=== PATIENT | female | born 2005 | race Hispanic/Latino ===

== ENCOUNTER 2025-04-25 15:28 | Emergency (ER) | payer MEDICAID, SELFPAY ==
[2025-04-25 15:38] VITALS: BP 100/57; PULSE 73; RESP 16; TEMP 36.9; O2SAT 100
--- NOTE | 2025-04-25 16:11 | ED.GENADULT ---
HPI - General Adult General Chief complaint: Allergic Reaction Stated complaint: Allergic Reaction Time Seen by Provider: 04/25/25 16:11 Source: patient Mode of arrival: ambulatory Limitations: no limitations History of Present Illness HPI narrative: 19-year-old female patient presents to the [facility] with complaints of a rash and bilateral eyelid swelling that started last night. Patient states that a red blotchy rash came up all of a sudden to bilateral arms, legs and bottom of the feet. Patient states she did take 1 Benadryl at midnight and other 1 at 1:00 a.m. and states that the rash ended up going away. Patient states she still has a bit of swelling to bilateral upper eyelids. Denies any new soaps lotions or detergents but recently did get a CT. Denies any chest pain or shortness of breath denies any issues with swallowing. Related Data Home Medications ?Medication ?Instructions ?Recorded ?Confirmed ?Last Taken ?Type No Home Medications 04/25/25 04/25/25 Unknown History Allergies Allergy/AdvReac Type Severity Reaction Status Date / Time No Known Drug Allergies Allergy none Verified 04/25/25 16:04 Review of Systems Review of Systems: CONSTITUTIONAL: Denies fever, chills, or sweats. EYES: Denies visual changes, redness, or discharge. ENT: Denies rhinorrhea, congestion, sore throat, or otalgia. CARDIOVASCULAR: Denies chest pain, palpitations, or edema. RESPIRATORY: Denies cough or dyspnea. GASTROINTESTINAL: Denies abdominal pain, nausea, vomiting, or diarrhea. GENITOURINARY: Denies dysuria or hematuria. SKIN: positive rash or itching. MUSCULOSKELETAL: Denies back pain, joint pain, or myalgia. NEUROLOGIC: Denies headache, numbness, or weakness. PSYCHIATRIC: Denies anxiety or depression. PMFSH Comments At the time of my signature I agree with nursing past medical history, surgical, social, and family history. There is no relevant family history pertinent to the presenting complaint. Exam Narrative: GENERAL: Well-appearing, well-nourished, and in no acute distress. HEAD: Normocephalic, atraumatic. EYES: PERRLA and EOMI. Mild swelling to bilateral upper eye lids. ENT: Nares clear, no rhinorrhea or epistaxis. Mucous membranes moist. NECK: Supple. No lymphadenopathy CHEST: Clear to auscultation. No respiratory distress. HEART: Regular rate and rhythm. No murmur heard. Normal peripheral pulses. ABDOMEN: Soft, nontender, nondistended, normal active bowel sounds. EXTREMITIES: Normal range of motion. No edema. SKIN: Warm, dry, no obvious rash to body at this visit. NEURO: No focal deficits. Alert and oriented x3. Course Course Level of Care: Express Care Visit Vital Signs Vital signs: Vital Signs Temperature 36.9 C 04/25/25 15:38 Pulse Rate 73 04/25/25 15:38 Respiratory Rate 16 04/25/25 15:38 Blood Pressure 100/57 L 04/25/25 15:38 Pulse Oximetry 100 04/25/25 15:38 Oxygen Delivery Room Air 04/25/25 15:38 Temperature 36.9 C 04/25/25 15:38 Pulse Rate 73 04/25/25 15:38 Respiratory Rate 16 04/25/25 15:38 Blood Pressure 100/57 L 04/25/25 15:38 Pulse Oximetry 100 04/25/25 15:38 Oxygen Delivery Room Air 04/25/25 15:38 Vital signs reviewed. Medical Decision Making MDM Narrative Medical decision making narrative: Discussed with patient that since the majority of her symptoms have resolved this is reassuring. Discussed with her that what she is describing sounds a lot like hives. Discussed with patient it could be due to something that she came into contact with this also can sometimes be due to stress or anxiety. Discussed with patient if she recently got a cat and this continues to happen I would definitely take an antihistamine daily. Recommend that she taking Kat once in the morning and once in the evening until the rash and swelling have resolved and then take 1 at least daily. Patient verbalized understanding denies any other questions or concerns at this time. Differential Diagnosis Differential Diagnosis: Differential diagnosis: Contact dermatitis, poison mercy, poison sumac, psoriasis, eczema, allergic reaction, drug reaction, scabies, tinea syphilis, lung disease, viral exanthema, pityriasis, erythema multiforme. Vital Signs Vital Signs: Vital Signs Temperature 36.9 C 04/25/25 15:38 Pulse Rate 73 04/25/25 15:38 Respiratory Rate 16 04/25/25 15:38 Blood Pressure 100/57 L 04/25/25 15:38 Pulse Oximetry 100 04/25/25 15:38 Oxygen Delivery Room Air 04/25/25 15:38 Temperature 36.9 C 04/25/25 15:38 Pulse Rate 73 04/25/25 15:38 Respiratory Rate 16 04/25/25 15:38 Blood Pressure 100/57 L 04/25/25 15:38 Pulse Oximetry 100 04/25/25 15:38 Oxygen Delivery Room Air 04/25/25 15:38 Critical Care Time Critical Care Time Critical Care Time: No Discharge Plan Discharge Clinical Impression: Urticaria Patient Disposition: Home Condition: Stable Instructions: Antibiotic Form, Urticaria (ED) Additional Instructions: Wash the area with soap and cool water only. Use skin creams/lotion or anti-itch medicine to reduce itchiness Take [id number] Kat twice a day until rash and swelling to the eyelids have resolved then just take once daily. A Avoid scratching when possible to prevent worsening of the condition and disruption of the skin that could lead to bacterial infection To relieve itching, place a cool washcloth or some ice over the area that itches, rather than scratching Follow up with primary care provider or seek ER if you have trouble breathing, become hoarse, or start wheezing, develop belly cramps, vomiting or feel dizzy. Patient Language: Mal[place]ian Prescriptions: No Action No Home Medications Follow-up/Referrals: PHYSICIAN,ELECTRICAL MECHANIC [Primary Care Provider] - Time of Disposition: 16:26
== END 2025-04-25 16:37 | disposition home or self-care (01) ==
PROVIDERS: Emergency Provider Nurse Practitioner Family
DX: L50.9 Urticaria, unspecified (principal)
CPT/HCPCS: 99202; G0463